=== PATIENT | female | born 1995 | race Caucasian/White ===

== ENCOUNTER 2020-08-23 07:28 | Emergency (ER) | payer MEDICAID, SELFPAY ==
[2020-08-23 07:32] VITALS: BP 118/67; PULSE 87; RESP 18; TEMP 36.7; O2SAT 100; BMI 18.3
--- NOTE | 2020-08-23 07:53 | HMH.EDDENT ---
ED Disposition Clinical Impression: Pain, dental Disposition: Home, Self-Care Condition on Discharge: Good Instructions: DI for Dental Pain Additional Instructions: use meds and see dentist for follow up Prescriptions: Minocycline HCl [Minocycline HCl 100mg Tab*] 100 mg PO BID #20 tab Prescription Printed Meloxicam [Mobic 15 mg tab] 15 mg PO DAILY #10 tab Prescription Printed Referrals: Mode Wilson [Primary Care Provider] - - Critical Care Critical Care Time: No Attestation: On , the high probability of a clinically significant, sudden or life threatening deterioration of the following system(s) required my full and direct attention, intervention and personal management. The time I documented below is in addition to time spent performing reported procedures but includes the following listed in this critical care notation. Medical Decision Making - Medical Records Medical records reviewed: Yes: I reviewed the patient's medical records. - Devon Inquiry Pt receiving controlled substance: No Vital Signs: 08/23/20 07:32 Temperature 98.0 F Temperature Source Oral Pulse Rate [Right Radial] 87 Respiratory Rate 18 Blood Pressure [Right Arm] 118/67 Blood Pressure Mean [Right Arm] 84 Blood Pressure Source [Right Arm] Automatic Cuff Blood Pressure Position [Right Arm] Sitting 02 Sat by Pulse Oximetry 100 Oxygen Delivery Method Room Air Dental HPI - General Chief complaint: Dental/Oral Stated complaint: dental pain Time Seen by Provider: 08/23/20 07:50 Mode of Arrival: Ambulatory Source of Information: Patient, Medical Record Limitations: No Limitations Description of Symptoms (Recalled from ER Triage Doc. by RN): Pt c/o dental pain x4 days. Pt reports her wisdom teeth are coming in. Pt reports has an appointment with a dentist in 2 weeks. - History of Present Illness HPI Narrative: ongoing dental pain for months worse at times - no preg and no other c/o MD Complaint: tooth pain Duration: intermittent Severity: moderate Treatment prior to arrival: none - Related Data Previous Rx's Medication Instructions Recorded Meloxicam [Mobic 15 mg tab] 15 mg PO DAILY #10 tab 08/23/20 Minocycline HCl [Minocycline HCl 100 mg PO BID #20 tab 08/23/20 100mg Tab*] Allergies Allergy/AdvReac Type Severity Reaction Status Date / Time No Known Allergies Allergy Verified 08/23/20 07:50 [facility] History - Hepatitis A Screen Drug use history?: No High risk sexual behaviors?: No History of sexually transmitted infection?: No Currently employed?: No Childcare worker?: No Do you have indoor plumbing?: Yes Do you have electricity?: Yes Attestation statement:: This patient has been screened for Hepatitis A risk factors. I have reviewed the patient's past medical history: Yes Medical History: Denies:: Diabetes Mellitus Type 1, Diabetes Mellitus Type 2 - Social History Alcohol Intake: never Substance Use Type: marijuana Occupational Status: other ROS Obtained: Yes All systems reviewed & no additional complaints - Constitutional Constitutional: Denies fever(s) - Eyes Eyes: Denies change in vision - ENT Ears, Nose, Mouth, and Throat: Reports as per HPI, Reports dental pain Physical Exam - General General appearance: alert - Head Head exam: normocephalic - Eye Eye exam: Present: PERRL, EOMI - ENT ENT exam: Present: mucous membranes moist - Expanded ENT Exam Teeth exam: Present: gingival swelling, other (wisdom teeth noted ) Throat exam: Present: normal inspection - Neck Neck exam: Present: trachea midline - Respiratory Respiratory exam: Absent: respiratory distress - Cardiovascular Cardiovascular exam: Present: regular rate - Neurological Exam Neurological exam: Present: alert, CN II-XII intact - Psychiatric Psychiatric exam: Present: normal affect - Skin Skin exam: Absent: rash
[2020-08-23 08:07] VITALS: BP 118/67; PULSE 87; RESP 18; TEMP 36.7; O2SAT 100
== END 2020-08-23 08:07 | disposition home or self-care (01) ==
PROVIDERS: Emergency Provider Emergency Medicine; PCP Family Medicine
DX: K08.89 Other specified disorders of teeth and supporting structures (principal); F12.10 Cannabis abuse, uncomplicated
CPT/HCPCS: 99281

== ENCOUNTER → 2021-10-03 13:25 | Outpatient (CLI) | payer BC, SELFPAY | PROVIDERS: Visit Provider Nurse Practitioner | DX: U07.1 COVID-19 (principal) | CPT/HCPCS: C9803; U0003; U0005 ==

== ENCOUNTER 2023-01-27 04:38 | Emergency (ER) | payer BC, SELFPAY ==
[2023-01-27 05:20] VITALS: BP 130/78; PULSE 78; RESP 18; TEMP 36.6; O2SAT 98; BMI 22.3
--- NOTE | 2023-01-27 05:22 | HMH.EDMCLR ---
Discharge Plan Disposition Patient Disposition: Home, Self-Care Chief Complaint: Medical Clearance Prescriptions Prescriptions: No Action minocycline 100 MG tablet 100 mg PO BID Qty: 20 0RF meloxicam 15 MG tablet 15 mg PO DAILY Qty: 10 0RF Referrals Follow up/Referrals: Provider,Referral, MD [Primary Care Provider] - See instructions Clinical Impressions Clinical Impression: Medical clearance for incarceration Discharge ED Provider: Elías FOUNTAIN)[facility] Medical Clearance HPI General Chief complaint: Medical Clearance Stated complaint: Medical Cleranace and blood draw Time Seen by Provider: 01/27/23 05:22 Mode of Arrival: Ambulatory Source of Information: Patient and Medical Record Description of Symptoms (Recalled from ER Triage Doc. by RN): Pt arrives via [facility] for medical clearance. No medical complaints History of Present Illness HPI Narrative: no c/o MD complaint: medical clearance requested Alleged Intoxication: Yes Traumatic Symptoms: denies traumatic injury Previous Rx's Medication Instructions Recorded meloxicam 15 mg tablet 15 mg PO DAILY #10 tabs 08/23/20 minocycline 100 mg tablet 100 mg PO BID #20 tabs 08/23/20 Allergies Allergy/AdvReac Type Severity Reaction Status Date / Time No Known Allergies Allergy Verified 08/23/20 07:50 [facility] Disclaimer: The information contained in this section may have been updated after the patient was seen, as this information can be updated by other users. Social History Smoking Status: Current every day smoker alcohol intake: never substance use type: marijuana current occupational status: other Travel in the last 8 weeks: None ROS Obtained: Yes All systems reviewed & no additional complaints except as documented Physical Exam General General appearance: alert Head Head exam: normocephalic Eye Eye exam: Present PERRL and EOMI ENT ENT exam: Present normal oropharynx Neck Neck exam: Present trachea midline Respiratory Respiratory exam: Absent respiratory distress Cardiovascular Cardiovascular exam: Present regular rate Abdominal Exam Abdominal exam: Present soft Extremities Exam Extremities exam: Present full ROM Neurological Exam Neurological exam: Present alert and CN II-XII intact Skin Skin exam: Absent rash Medical Decision Making Medical Records Medical records reviewed: Yes I reviewed the patient's medical records. Devon Inquiry Pt receiving controlled substance: No Vital Signs: 01/27/23 05:20 Temperature 98 F Temperature Source Oral Pulse Rate [Apical] 78 Respiratory Rate 18 Blood Pressure [Right Arm] 130/78 Blood Pressure Mean [Right Arm] 95 Blood Pressure Source [Right Arm] Automatic Cuff Blood Pressure Position [Right Arm] Sitting 02 Sat by Pulse Oximetry 98 Oxygen Delivery Method Room Air Lab Data Lab results reviewed: Yes I reviewed the patient's lab results. Medical Decision Narrative: no specific c/o Critical Care Time Critical Care Time Critical Care Time: No Attestation: On 01/27/23, the high probability of a clinically significant, sudden or life threatening deterioration of the following system(s) required my full and direct attention, intervention and personal management. The time I documented below is in addition to time spent performing reported procedures but includes the following listed in this critical care notation.
[2023-01-27 06:03] VITALS: BP 125/70; PULSE 75; RESP 18; TEMP 36.6; O2SAT 99
--- NOTE | 2023-01-27 06:04 | PC.NURSE ---
Patient requested in ED to have her own set of labs drawn to indicate her blood alcohol level. Per [employer]ipper Measurer and Lea Ramsey, patient is required to have an outpatient order for the lab draw from her pcp, and pay a montgomery payment of $75 prior to draw. Patient states that she does not have a pcp. Patient discharged with Leigh Ann HOROWITZ. PD states that they will continue with their policy on this incidents.
== END 2023-01-27 06:14 | disposition home or self-care (01) ==
PROVIDERS: Emergency Provider Emergency Medicine
DX: Z02.79 Encounter for issue of other medical certificate (principal); F17.200 Nicotine dependence, unspecified, uncomplicated
CPT/HCPCS: 99281; 99282

== ENCOUNTER 2024-12-09 22:29 | Emergency (ER) | payer BC, SELFPAY ==
[2024-12-09 22:30] VITALS: BP 118/76; PULSE 85; RESP 18; TEMP 36.8; O2SAT 98; BMI 20.7
--- NOTE | 2024-12-09 22:45 | HMH.EDGENADL ---
Discharge Plan Disposition Patient Disposition: Home, Self-Care Prescriptions Prescriptions: New chlorhexidine gluconate [Peridex] 0.12 % mouthwash 15 ml buccal DAILY Qty: 750 0RF amoxicillin-pot clavulanate 875-125 mg tablet 1 tab PO BID 7 Days Qty: 14 0RF No Action minocycline 100 MG tablet 100 mg PO BID Qty: 20 0RF meloxicam 15 MG tablet 15 mg PO DAILY Qty: 10 0RF Referrals Follow up/Referrals: Provider,Referral, MD [Primary Care Provider] - See instructions Activity Restrictions/Add. Instructions Additional Instructions/Restrictions: Call your family doctor to establish care for this visit to the emergency department and schedule follow-up within 48 hours to ensure improvement. If you have any worsening of your condition or any other concerning signs or symptoms, return to the emergency department or your primary care doctor for further evaluation. Augmentin twice daily for 7 days. Clinical Impressions Clinical Impression: Periapical abscess Print Language Print Language: Divehi Discharge ED Provider: Malik Mcgrath General Adult HPI General Chief complaint: Dental/Oral Stated complaint: ? infected wisdom tooth,bottom left Time Seen by Provider: 12/09/24 22:37 Mode of Arrival: Ambulatory Source of Information: Patient Description of Symptoms (Recalled from ER Triage Doc. by RN): Pt to ED with c/o dental pain on left lower side. started yesterday morning. Pt took motrin @1200 today with no relief. History of Present Illness HPI narrative: Please note that above description of symptoms, in this electronic medical record under categorization of recalled from ER triage doctor by RN are reflective of an initial nursing assessment, however, is not reflective of my full history and physical exam that was personally taken and clarified. Consequentially, this preceding description of symptoms, which may include the patient's categorized chief complaint in the EMR, do not reflect my personal clinical impression, and the ultimate description of history of present illness and patient stated complaints should be deferred to this section of the note. Unless stated otherwise or congruent with this section of the note, additional signs, symptoms, or incongruence should be interpreted as inaccurate with my clinical impression. Related Data Previous Rx's ?Medication ?Instructions ?Recorded meloxicam 15 mg tablet 15 mg PO DAILY #10 tabs 08/23/20 minocycline 100 mg tablet 100 mg PO BID #20 tabs 08/23/20 amoxicillin 875 mg-potassium 1 tab PO BID 7 days #14 tabs 12/09/24 clavulanate 125 mg tablet chlorhexidine gluconate 0.12 % 15 ml buccal DAILY #750 mL 12/09/24 mouthwash (Peridex) Allergies Allergy/AdvReac Type Severity Reaction Status Date / Time No Known Allergies Allergy Verified 08/23/20 07:50 [facility] Disclaimer: The information contained in this section may have been updated after the patient was seen, as this information can be updated by other users. Social History Smoking Status: Current every day smoker alcohol intake: never substance use type: marijuana current occupational status: other Travel in the last 8 weeks: None Have you lived/traveled outside [place] in past 30 days?: No Contact w/someone who lives/traveled outside US past 30 days?: No Exposure to someone with infectious disease in past 14 days?: No Do you have a fever (greater than 100.4 F or 38 C)?: No Have you tested positive for COVID-19: No Exposed to someone with COVID-19 in past 14 days?: No Do you have a sore throat?: No Do you have a cough?: No Do you have any weakness?: No Do you have any diarrhea?: No Are you experiencing any unusual bleeding?: No Do you have any muscle aches/pain?: No Do you have any abdominal pain?: No Are you experiencing loss of taste or smell?: No Other Medical History Have you received the Flu Vaccine for this season: No Have you received the Pneumonia Vaccine: No ROS Obtained: Yes All systems reviewed & no additional complaints except as documented Physical Exam General General appearance: alert Head Head exam: atraumatic and normocephalic Eye Eye exam: Present normal appearance, PERRL and EOMI ENT ENT exam: Present other (Left lower wisdom tooth rotted, cracked. No evidence of tonsillitis, exudate, pharyngeal erythema, uvular deviation, palatal swelling, trismus, external neck swelling, submental induration, dental abscess, angioedema, or other abnormal heidi pharyngeal findings) Neck Neck exam: Present normal inspection, full ROM and trachea midline Respiratory Respiratory exam: Absent respiratory distress, wheezes, stridor, accessory muscle use or prolonged expiratory phase Cardiovascular Cardiovascular exam: Present other (Pulses equal symmetric in upper and lower extremities) Abdominal Exam Abdominal exam: Present soft; Absent distention, tenderness or pulsatile mass Extremities Exam Extremities exam: Absent edema Neurological Exam Neurological exam: Present alert, oriented X3 and CN II-XII intact; Absent motor sensory deficit Skin Skin exam: Present warm and dry; Absent diaphoresis or erythema Medical Decision Making Medical Records Medical records reviewed: Yes I reviewed the patient's medical records. Screening: Per USPSTF and CDC recommendations, given the prevalence of disease in our region, it is our hospital?s policy to screen for HIV and viral Hepatitis for all patients aged 18 and over and those with ongoing risk factors. Devon Inquiry Pt receiving controlled substance: No Devon was queried for this patient: No Vital Signs: 12/09/24 22:30 Temperature 98.3 F Temperature Source Oral Pulse Rate [Left Radial] 85 Respiratory Rate 18 Blood Pressure [Right Arm] 118/76 Blood Pressure Mean [Right Arm] 90 Blood Pressure Source [Right Arm] Automatic Cuff Blood Pressure Position [Right Arm] Sitting 02 Sat by Pulse Oximetry 98 Oxygen Delivery Method Room Air Orders (Tests/Meds): ED MEDICATIONS Generic Name Dose Route Start Last Admin Trade Name Freq PRN Reason Stop Dose Admin Amoxicillin/Clavulanate Potassium 1 each 12/09/24 22:44 Amoxicillin/Clavulanate Potassium 875/125mg Tablet PO 12/09/24 22:45 ONCE ONE Lidocaine HCl 15 ml 12/09/24 22:44 Lidocaine 2% Viscous Adrianne 15ml Udc PO 12/09/24 22:45 ONCE ONE Medical Decision Narrative: 29-year-old female presenting with dental pain. She states that it started a few days prior to this, getting worse to the point where she cannot stand it. Has taken Tylenol and Motrin it has not helped. Has 3 kids, works full-time job, having difficulty finding time to make it into the dentist. Currently pain is moderate to severe in intensity. History was obtained via conversation with patient. On arrival, patient hemodynamically stable, alert, oriented x4, appropriate, GCS 15, moving all extremities spontaneously, pupils equal and reactive to light. Full physical exam performed and significant for Left lower wisdom tooth rotted, cracked. No evidence of tonsillitis, exudate, pharyngeal erythema, uvular deviation, palatal swelling, trismus, external neck swelling, submental induration, dental abscess, angioedema, or other abnormal heidi pharyngeal findings. Differential includes pulpitis, gingivitis, early periapical abscess, among others. Because patient has no red flag signs or symptoms, no further workup was deemed necessary although CT scan of the face with contrast was considered to further delineate pain. Patient was given Augmentin, dental balls. Augmentin and Peridex sent to the pharmacy. Because patient at baseline without signs or symptoms of clinical decompensation, deemed appropriate for discharge. Results were relayed to patient who voiced understanding and were agreeable to outpatient management and follow up. I discussed my clinical impression with patient and answered all questions. At this time, the evidence for any other entities in the differential is insufficient to warrant any further testing or ED observation. This was explained as well. Advisory was given that persistent or worsening symptoms require further evaluation. I confirmed the understanding of this discussion. Microstrategy Architect disclaimer Much of this encounter note is an electronic registered medical transcriptionist spoken language to printed text. Electronic registered medical transcriptionist of the spoken language may permit errors. Although I have reviewed the note, some errors may still exist. Critical Care Critical Care Time Critical Care Time: No
[2024-12-09] MEDS: AMOXICILLIN/CLAVULANATE POTASSIUM 875/125MG TABLET 1 EACH PO (22:52)
[2024-12-09] MEDS: LIDOCAINE 2% VISCOUS SOL 15ML UDC 15 ML PO (22:53)
[2024-12-09 23:05] VITALS: BP 118/60; PULSE 62; RESP 14; TEMP 36.6; O2SAT 100
== END 2024-12-09 23:07 | disposition home or self-care (01) ==
PROVIDERS: Emergency Provider Emergency Medicine
DX: K04.7 Periapical abscess without sinus (principal)
CPT/HCPCS: 99283

== ENCOUNTER 2025-05-11 12:40 | Emergency (ER) | payer BC, SELFPAY ==
[2025-05-11 13:25] VITALS: BP 105/66; PULSE 69; RESP 16; TEMP 37.1; O2SAT 100; BMI 21.9
--- OUTSIDE RECORDS SUMMARY | 2025-05-11 13:25 | XMS_ITS | Clinical Summary ---
Author Organization [facility] Address [address] [place] [address] Care Team Providers Care Center Director Name Role Phone Unavailable Primary Care Provider Unavailabl e Social History Tobacco Use Types Packs/Day Years Used Date Smoking Tobacco: Never Assessed Comments Unknown Sex and Gender Information Value Date Recorded Sex Assigned at Not on file Legal Sex Female 8:10 PM EDT Gender Identity Not on file Sexual Orientation Not on file Plan of Treatment Health Maintenance Due Date Last Done Comments Dental Oral Exam 1993 Dental Prophylaxis 1993 Dental X-Ray: Full Mouth 1993 [facility]-Depression Screening 1993 [facility]-/Child/Adol SDOH Screenings 1993 [facility]-Varicella Vaccines (1 of 2 - 13+ 2-dose series) 2006 HPV Vaccines (1 - 3-dose series) 02/06/2008 [facility]- SDOH Screenings 2011 [facility]-Adult SDOH Screenings 2011 [facility]-Hepatitis B Vaccines (1 of 3 - 19+ 3-dose series) 02/06/2012 [facility]-Pap Smear 2014 Dental X-Ray: Bitewings 12/01/2022 11/30/2021 [facility]-Cervical Cancer Screening 2023 [facility]-HPV/Cotest 2023 [id number] Vaccine (1 - season) 2024 [facility]-Influenza Vaccine (#1) 2025 [facility]-DTaP,Tdap,and Td Vaccines (3 - Td or Tdap) 10/26/2031 10/26/2021, 11/19/2014 [facility]-Zoster Vaccines (1 of 2) 2043 [facility]-Hepatitis A Vaccines Aged Out 019, 08/21/2018 No longer eligible based on patient's age to complete this topic [facility]-HIB Vaccines Aged Out No longer e ligible based on patient's age to complete this topic [facility]-IPV Vaccines Aged Out No longer e ligible based on patient's age to complete this topic [facility]-Pneumococcal Vaccine: Pediatrics (0 to 5 Years) and At-Risk Patients (6 to 49 Years) Aged Out No longer eligible b ased on patient's age to complete this topic [facility]-Rotavirus Vaccines Aged Out No lo nger eligible based on patient's age to complete this topic Procedures Procedure Name Priority Date/Time Associated Diagnosis Comments BITEWINGS - 4 RADIOGRAPHIC IMAGES Routine 11/30/2021 8:00 AM EST Encounter for dental examination from Last 3 Months or Most Recently Relevant to Health Maintenance Insurance
--- NOTE | 2025-05-11 13:29 | ED_ITS ---
<Statement entered by Lalo Bearden MD - 05/11/25 16:07> I consulted the ALBERT, and we discussed the complexity of the problems being addressed. I approved the treatment and management plan for this patient's care in the emergency department, thus performing a substantial portion of the medical decision making. Will MD Suleiman Discharge Plan Disposition Patient Disposition: Home, Self-Care Prescriptions Prescriptions: New ketorolac 10 mg tablet 10 mg PO Q8H 5 Days Qty: 15 0RF No Action minocycline 100 MG tablet 100 mg PO BID Qty: 20 0RF meloxicam 15 MG tablet 15 mg PO DAILY Qty: 10 0RF chlorhexidine gluconate [Peridex] 0.12 % mouthwash 15 ml buccal DAILY Qty: 750 0RF amoxicillin-pot clavulanate 875-125 mg tablet 1 tab PO BID 7 Days Qty: 14 0RF Referrals Follow up/Referrals: Coretta Kelly APRN [Primary Care Provider, Medical] - See instructions Activity Restrictions/Add. Instructions Additional Instructions/Restrictions: Increase fluids and rest. Take meds as directed. If not improved please return to the ER or call PCP. Clinical Impressions Clinical Impression: Migraine Instructions Patient Instructions: DI for Migraine Print Language Print Language: Marshallese Discharge ED Provider: Lalo Bearden General Adult HPI General Chief complaint: Headache Stated complaint: Migraine, Nausea Time Seen by Provider: 05/11/25 13:22 History of Present Illness HPI narrative: 30-year-old female presents to the ED today for complaint of migraine that started last night. Typically she will go to her primary care office but she was unable to get an. She says that these migraines come from stress. Her primary care usually gives her a Toradol injection and that works for her. She has some nausea as well that comes and goes. She has been getting more frequent headaches lately. She denies recent illness, no fevers or chills. She says typically when she gets a headache she will take Excedrin Migraine but that works for her. That just did not work last night. Related Data Previous Rx's ?Medication ?Instructions ?Recorded meloxicam 15 mg tablet 15 mg PO DAILY #10 tabs 08/06 05/25 minocycline 100 mg tablet 100 mg PO BID #20 tabs 08/23 amoxicillin 875 mg-potassium 1 tab PO BID 7 days #14 t abs 12/09/24 clavulanate 125 mg tablet chlorhexidine gluconate 0.12 % 15 ml buccal DAILY #750 mL 12/09/24 mouthwash (Peridex) ketorolac 10 mg tablet 10 mg PO Q8H 5 days #15 tabs 05/11/25 Allergies Allergy/AdvReac Type Severity Reaction Status Date / Time No Known Allergies Allergy Verified 08/23/20 07:50 [facility] Disclaimer: The information contained in this section may have been updated after the patient was seen, as this information can be updated by other users. Social History Smoking Status: Current every day smoker alcohol intake: never substance use type: marijuana current occupational status: other Travel in the last 8 weeks?: None Have you lived/traveled outside [place] in past 30 days?: No Contact w/someone who lives/traveled outside [place] past 30 days?: No Exposure to someone with infectious disease in past 14 days?: No Do you have a fever (greater than 100.4 F or 38 C)?: No Have you tested positive for COVID-19?: No Exposed to someone with COVID-19 in past 14 days?: No Do you have a sore throat?: No Do you have a cough?: No Do you have any weakness?: No Do you have any diarrhea?: No Are you experiencing any unusual bleeding?: No Do you have any muscle aches/pain?: No Do you have any abdominal pain?: No Are you experiencing loss of taste or smell?: No Other Medical History Have you received the Flu Vaccine for this season: No Have you received the Pneumonia Vaccine: No ROS Obtained: Yes Systems reviewed as appropriate & no additional complaints except as documented Constitutional Constitutional: Reports as per HPI Physical Exam General General appearance: alert and in distress Head Head exam: atraumatic and normocephalic Eye Eye exam: Present PERRL and EOMI ENT ENT exam: Present mucous membranes moist Neck Neck exam: Present full ROM and trachea midline Respiratory Respiratory exam: Present normal lung sounds bilaterally Cardiovascular Cardiovascular exam: Present regular rate, normal rhythm, normal heart sounds, +S1 and +S2 Abdominal Exam Abdominal exam: Present soft and normal bowel sounds Extremities Exam Extremities exam: Present full ROM Neurological Exam Neurological exam: Present alert and oriented X3 Skin Skin exam: Present warm, dry and intact Medical Decision Making Medical Records Screening: Per USPSTF and CDC recommendations, given the prevalence of disease in our region, it is our hospital?s policy to screen for HIV and viral Hepatitis for all patients aged 18 and over and those with ongoing risk factors. [place] Inquiry Pt receiving controlled substance: No [place] was queried for this patient: No Vital Signs: 05/11/25 13:25 Temperature 98.8 F Temperature Source Oral Pulse Rate [Right Radial] 69 Respiratory Rate 16 Blood Pressure [Right Arm] 105/66 L Blood Pressure Mean [Right Arm] 79 Blood Pressure Source [Right Arm] Automatic Cuff Blood Pressure Position [Right Arm] Sitting 02 Sat by Pulse Oximetry 100 Oxygen Delivery Method Room Air Orders (Tests/Meds): ED MEDICATIONS Generic Name Dose Route Start Last Admin Trade Name Freq PRN Reason Stop Dose Admin Dexamethasone Sodium Phosphate 8 mg 05/11/25 13:30 05/11/25 13:42 Dexamethasone 4mg/Ml 5ml Mdv IM 06/10/25 13:29 8 mg Q6H MACARIO Administration Discontinued Medications Generic Name Dose Route Start Last Admin Trade Name Freq PRN Reason Stop Dose Admin Ketorolac Tromethamine 30 mg 05/11/25 13:28 05/11/25 13:43 Ketorolac 30mg/Ml Vial IM 05/11/25 13:29 30 mg ONCE ONE Administration Ondansetron HCl 4 mg 05/11/25 13:28 05/11/25 13:43 Ondansetron 4mg Odt SL 05/11/25 13:29 4 mg ONCE ONE Administration ORDERS Category Date Time Status HIV Combo Stat Lab 05/11/25 13:43 Ordered Hepatitis C Ab Qual. W/ RFX Stat Lab 05/11/25 13:43 Ordered Medical Decision Narrative: patient is a 30-year-old female presenting to the emergency department for evaluation of migraine with nausea. Patient is hemodynamically stable and nontoxic-appearing upon arrival, afebrile. Differential diagnosis includes migraine. Patient does not want workup today she requests an injection and a work note. She has her daughter with her today and missed work so tells me that typically an injection of Toradol from her PCP works well for her. She just was unable to get into her primary care provider today. Patient headache has improved with medications. Will send patient home with some p.o. Toradol she has nausea meds at home. Patient to call PCP for appointment for further care management. Patient safe for discharge home. Critical Care Critical Care Time Critical Care Time: No
[2025-05-11] MEDS: DEXAMETHASONE 4MG/ML 5ML MDV 8 MG IM (13:42)
[2025-05-11] MEDS: KETOROLAC 30MG/ML VIAL 30 MG IM (13:43)
[2025-05-11] MEDS: ONDANSETRON 4MG ODT 4 MG SL (13:43)
--- NOTE | 2025-05-11 14:36 | PC.NURSE ---
[facility] called to verify the pt had IM/IV torodol. I let him know she had IM. He is going to fill her out patient script for it.
[2025-05-11 14:46] VITALS: BP 94/55; PULSE 64; RESP 12; TEMP 36.9; O2SAT 99
== END 2025-05-11 14:47 | disposition home or self-care (01) ==
PROVIDERS: Emergency Provider Student in an Organized Health Care Education/Training Program; PCP Nurse Practitioner Family
DX: G43.909 Migraine, unspecified, not intractable, without status migrainosus (principal); R11.0 Nausea; F17.210 Nicotine dependence, cigarettes, uncomplicated
CPT/HCPCS: 96372; 99283; J1100; J1885; Q0162